=== PATIENT | male | born 1940 | race African-American/Black ===

== ENCOUNTER 2017-11-26 13:24 | Emergency (ER) | payer OTHER ==
[2017-11-26] MEDS ORDERED: Albuterol Sulfate 2.5 mg/3 ml Neb ONE (13:58)
[2017-11-26 14:23] LABS: #Basophils 0.1 thou/uL (0.0-0.2); #Eosinphils 0.8 thou/uL (0.0-0.7); #Lymphocytes 2.3 thou/uL (1.20-3.40); #Neutrophils 4.6 thou/uL (1.40-6.50); %Basophils 0.6 % (0.0-1.0); %Eosinophils 9.1 % (0.0-10.0); %Lymphocytes 26.3 % (21.0-51.0); %Monocytes 10.9 % (0.0-10.0); Hemoglobin 14.1 g/dL (14.0-18.0); Mean Corpuscular HGB CONC 31.7 g/dL (32.0-36.0); Mean Corpuscular Hemoglobin 27.7 pg (27.0-31.0); Mean Corpuscular Volume 87.4 fl (80.0-94.0); Mean Platelet Volume 5.9 fL (7.4-10.4); Platelet Count 299 thou/uL (130-400); RBC Distribution Width 13.7 % (11.5-14.5); Red Blood Cell (RBC) Count 5.08 mill/uL (4.70-6.10); White Blood Cell (WBC) Count 8.8 thou/uL (4.8-10.8)
--- NOTE | 2017-11-26 14:25 | RAD ---
PORTABLE CHEST: Date: 11/26/17 HISTORY: Difficulty breathing. No comparison. FINDINGS: Hyperexpansion and flattened diaphragm suggests COPD. There is evidence of early interstitial infiltr ate in the left lung base. Close follow-up recommended. There are emphysematous changes without loss of markings in the upper lung zones. Heart size is tomasa l. Calcified granuloma in the upper medial left lung. IMPRESSION: 1. Volume expansion consistent with COPD. 2. Streaky density in the left lung base is worrisome for new infiltrate. Follow-up recommended. POS: [facility]
[2017-11-26 14:39] LABS: ALT (SGPT) 22 U/L (8-55); AST (SGOT) 28 U/L (5-34); Alkaline Phosphatase 113 U/L (40-150); Anion Gap 14 mmol/L (10-20); BUN (Urea Nitrogen) 18 mg/dL (8.4-25.7); Bilirubin, Total 0.5 mg/dL (0.2-1.2); CK (CPK) 346 U/L (30-200); Calc. Creatinine Clearance 0 mL/min (70-130); Calcium 9.5 mg/dL (7.8-10.44); Carbon Dioxide 24 mmol/L (23-31); Chloride 101 mmol/L (98-107); Estimated GFR-MDRD 83; Globulin 3.9 g/dL (2.4-3.5); Glucose 133 mg/dL (83-110); Potassium 4.3 mmol/L (3.5-5.1); Protein, Total 7.9 g/dL (5.8-8.1); Sodium 135 mmol/L (136-145)
[2017-11-26 14:44] LABS: Troponin I Less than 0.010 ng/mL (< 0.028)
[2017-11-26 14:49] LABS: CKMB 8.8 ng/mL (0-6.6)
[2017-11-26] MEDS ORDERED: methylPREDNISolone Sod Succ/PF 125 MG/2 ML VIAL ONE (14:50)
[2017-11-26] MEDS ORDERED: Azithromycin 500 MG VIAL ONE (14:59)
[2017-11-26] MEDS ORDERED: Azithromycin 500 MG in Sodium Chloride 0.9% 250 ML 250 ML IVPB SCH (15:00)
[2017-11-26 17:23] LABS: Base Excess-Venous 1.9 mmol/L (0 (+/- 2.5)); Bicarbonate (HCO3v) 28.4 mmol/L (1.0-85.0); CO2 Tension (PvCO2) 50.5 mmHg (41.0-51.0); Calcium, Ionized 1.07 mmol/L (1.12-1.32); Hemoglobin - Calc 15.4 g/dL (12.0-18.0); O2 Tension (PvO2) 50.5 mmHg (35.0-45.0); pH (Venous) 7.358 (7.35-7.45); vO2 Saturation-calc 83.2 % (94-98)
== END 2017-11-26 20:40 | disposition short-term general hospital (02) ==
LOC: ERS 13:24
DX: J44.1 Chronic obstructive pulmonary disease with (acute) exacerbation (principal); J18.9 Pneumonia, unspecified organism; J44.0 Chronic obstructive pulmonary disease with (acute) lower respiratory infection; G40.909 Epilepsy, unspecified, not intractable, without status epilepticus; M19.90 Unspecified osteoarthritis, unspecified site; Z87.891 Personal history of nicotine dependence; Z79.899 Other long term (current) drug therapy
CPT/HCPCS: 36415; 71045; 80053; 82330; 82550; 82553; 82803; 83605; 84484; 85025; 87040; 87804; 93005; 94640; 94644; 94760; 96365; 96375; J0456; J0696; J2930; J7050; J7611; J7620